=== PATIENT | male | born 1980 | race African-American/Black ===

== ENCOUNTER 2020-07-08 01:18 | Emergency (ER) | payer MEDICAID ==
--- NOTE | 2020-07-08 01:38 | ER Document Report ---
ED Medical Screen (RME) - General Chief Complaint: Leg Pain Stated Complaint: POSSIBLE BLOOD CLOTS Time Seen by Provider: 07/08/20 01:34 Mode of Arrival: Wheelchair Information source: Patient Notes: Patient presents to the ER for evaluation of bilateral lower extremity pain and swelling that is worse in the left leg times several days. He denies shortness of breath or chest pain. He denies fever. He denies nausea or vomiting. The patient states he has a history of DVT and is supposed to be on anticoagulation therapy but he currently is not. Exam- CONSTITUTIONAL: Well appearing. No acute distress. SKIN: Warm, dry, and intact without rash MUSCULOSKELETAL: There is swelling to the left lower extremity with tenderness palpation of the posterior calf and thigh. I have greeted and performed a rapid initial assessment of this patient. A comprehensive ED assessment and evaluation of the patient, analysis of test results and completion of the medical decision making process will be conducted by additional ED providers. Dictation of this chart was performed using voice recognition software; therefore, there may be some unintended grammatical errors. - Related Data Allergies/Adverse Reactions: acetaminophen [From Darvocet-N] Allergy (Verified 07/08/20 01:34) propoxyphene [From Darvocet-N] Allergy (Verified 07/08/20 01:34) Physical Exam - Vital signs Vitals: Temp Pulse Resp BP Pulse Ox 98.9 F 98 20 140/85 H 98 07/08/20 01:26 07/08/20 01:26 07/08/20 01:26 07/08/20 01:26 07/08/20 01:26 Course - Vital Signs Vital signs: Temp Pulse Resp BP Pulse Ox 98.9 F 98 20 140/85 H 98 07/08/20 01:26 07/08/20 01:26 07/08/20 01:26 07/08/20 01:26 07/08/20 01:26
[2020-07-08 02:43] LABS: HEMATOCRIT 40.9 % (37.9-51.0); MEAN CORPUSCULAR HEMOGLOBIN 30.8 pg (27.0-33.4); MEAN CORPUSCULAR HGB CONC 34.3 g/dL (32.0-36.0); MEAN CORPUSCULAR VOLUME 90 fl (80-97); PLATELET COUNT 292 10^3/uL (150-450); RED BLOOD COUNT 4.56 10^6/uL (4.35-5.55); RED CELL DISTRIBUTION WIDTH 14.8 % (11.5-14.0); WHITE BLOOD COUNT 9.5 10^3/uL (4.0-10.5)
[2020-07-08 02:54] LABS: INTERNATIONAL RATION (INR) 0.92; PROTHROMBIN TIME 12.6 SEC (11.4-15.4)
[2020-07-08 02:55] LABS: PARTIAL THROMBOPLASTIN TIME 25.7 SEC (23.5-35.8)
[2020-07-08 02:57] LABS: D-DIMER 0.37 ug/mL (0.00-0.50)
[2020-07-08 02:59] LABS: ANION GAP 6 (5-19); BLOOD UREA NITROGEN 13 mg/dL (7-20); CALCIUM 9.5 mg/dL (8.4-10.2); CARBON DIOXIDE 29 mmol/L (22-30); CHLORIDE 106 mmol/L (98-107); GLUCOSE 105 mg/dL (75-110); POTASSIUM 4.4 mmol/L (3.6-5.0)
[2020-07-08 03:13] LABS: ABSOLUTE LYMPHOCYTES# (MANUAL) 3.3 10^3/uL (0.5-4.7); ABSOLUTE MONOCYTES # (MANUAL) 0.9 10^3/uL (0.1-1.4); BASOPHILS % (MANUAL) 2 % (0-2); EOSINOPHILS % (MANUAL) 3 % (0-6); LYMPHOCYTES % (MANUAL) 35 % (13-45); MONOCYTES % (MANUAL) 9 % (3-13); NUCLEATED RED BLOOD CELLS 1 /100 WBC (0); SEGMENTED NEUTROPHILS % (MAN) 51 % (42-78); TOTAL CELLS COUNTED 100
[2020-07-08 03:15] LABS: PLATELET COMMENT ADEQUATE
[2020-07-08 05:59] VITALS: BP 131/87
--- NOTE | 2020-07-08 08:44 | ER Document Report ---
ED Extremity Problem, Lower - General Chief Complaint: Leg Pain Stated Complaint: POSSIBLE BLOOD CLOTS Time Seen by Provider: 07/08/20 01:34 Mode of Arrival: Wheelchair Notes: I reviewed the patient's labs. His D-dimer was 0.37 making it unlikely that he has a blood clot although not definitive. I went to the room to evaluate the patient and apparently he left prior to my evaluation. Nursing indicated that patient was unhappy he had been here so long without being bedded and even though he was only in the room for short period of time did not want to wait any further. I was unable to physically evaluate this patient as he left and eloped - Related Data Allergies/Adverse Reactions: acetaminophen [From Darvocet-N] Allergy (Verified 07/08/20 01:34) propoxyphene [From Darvocet-N] Allergy (Verified 07/08/20 01:34) Home Medications: XERELTO (NOT TAKING) Past Medical History - General Information source: Patient - Social History Smoking Status: Current Every Day Smoker Frequency of alcohol use: None Drug Abuse: None Family History: Reviewed & Not Pertinent Patient has homicidal ideation: No Physical Exam - Vital signs Vitals: Temp Pulse Resp BP Pulse Ox 98.9 F 98 20 140/85 H 98 07/08/20 01:26 07/08/20 01:26 07/08/20 01:26 07/08/20 01:26 07/08/20 01:26 Course - Vital Signs Vital signs: Temp Pulse Resp BP Pulse Ox 98.2 F 87 16 131/87 H 93 07/08/20 05:58 07/08/20 05:58 07/08/20 05:58 07/08/20 05:58 07/08/20 05:58 - Laboratory Result Diagrams: 07/08/20 02:18 07/08/20 02:18 Laboratory results interpreted by me: 07/08/20 02:18 RDW 14.8 H Discharge - Discharge Clinical Impression: Leg pain Qualifiers: Laterality: unspecified laterality Qualified Code(s): M79.606 - Pain in leg, unspecified Condition: Fair Disposition: ELOPED
== END 2020-07-08 08:42 | disposition left against medical advice (07) ==
LOC: ER 01:18
DX: M79.606 Pain in leg, unspecified (principal); R79.89 Other specified abnormal findings of blood chemistry; Z88.8 Allergy status to other drugs, medicaments and biological substances; F17.200 Nicotine dependence, unspecified, uncomplicated
CPT/HCPCS: 36415; 80048; 85025; 85379; 85610; 85730; 99281